=== PATIENT | male | born 1990 | race Caucasian/White ===

== ENCOUNTER 2024-04-08 11:51 | Inpatient (IN) | payer MEDICAID, SELFPAY ==
[~2024-04-08] VITALS: Ht 162.6 cm; Wt 98.1 kg
[2024-04-08 12:41] LABS: AMPHETAMINES LEVEL URINE NEGATIVE (NEGATIVE); BARBITURATES URINE NEGATIVE (NEGATIVE); BENZODIAZEPINES URINE NEGATIVE (NEGATIVE); CANNABINOIDS URINE NEGATIVE (NEGATIVE); COCAINE METABOLITE URINE NEGATIVE (NEGATIVE); METHADONE URINE NEGATIVE (NEGATIVE); OPIATES URINE NEGATIVE (NEGATIVE); PHENCYCLIDINE URINE NEGATIVE (NEGATIVE)
[2024-04-08 12:44] LABS: HEMATOCRIT 49.5 % (42.0-52.0); HEMOGLOBIN 17.3 g/dl (13.5-17.5); MEAN CORPUSCULAR HEMOGLOBIN 30.7 pg (27.0-33.0); MEAN CORPUSCULAR HGB CONC 34.9 g/dl (32.0-36.5); MEAN CORPUSCULAR VOLUME 87.9 fl (80.0-96.0); PLATELET COUNT, AUTOMATED 271 10^3/uL (150-450); RED BLOOD COUNT 5.63 10^6/uL (4.30-6.10)
[2024-04-08 13:11] LABS: ALBUMIN 4.4 G/DL (3.2-5.2); ALKALINE PHOSPHATASE 148 U/L (46-116); ALT/SGPT 43 U/L (7.0-40); AST/SGOT 23 U/L (<34); BILIRUBIN,DIRECT 0.3 MG/DL (<0.4); BILIRUBIN,TOTAL 1.1 MG/DL (0.3-1.2); BLOOD UREA NITROGEN 17 MG/DL (9-23); CALCIUM LEVEL 10.4 MG/DL (8.5-10.1); CARBON DIOXIDE LEVEL 27 MMOL/L (20-31); CHLORIDE LEVEL 104 MMOL/L (98-107); CREATININE FOR GFR 0.96 MG/DL (0.70-1.30); GLOMERULAR FILTRATION RATE > 60.0 (>60); GLUCOSE, FASTING 99 MG/DL (60-100); POTASSIUM SERUM 3.9 MMOL/L (3.5-5.1); SALICYLATE LEVEL < 3.0 MG/DL (<30); SODIUM LEVEL 137 MMOL/L (136-145)
[2024-04-08 13:12] LABS: ETHYL ALCOHOL (ETHANOL) < 0.003 % (0.000-0.010)
[2024-04-08 13:13] LABS: THYROID STIMULATING HORMONE 1.848 uIU/ML (0.55-4.78)
[2024-04-08] MEDS ORDERED: IBUPROFEN 400MG TAB PO PRN (14:30)
[2024-04-08] MEDS ORDERED: traZODone 50 MG TAB PO PRN (14:30)
[2024-04-08] MEDS ORDERED: diphenhydrAMINE 25MG CAP PO PRN (14:30)
[2024-04-08] MEDS ORDERED: MAALOX 30 ML SUSP *UDC PO PRN (14:30)
[2024-04-08] MEDS ORDERED: MOM 30ML SUSPENSION UDC PO PRN (14:30)
[2024-04-08] MEDS ORDERED: ACETAMINOPHEN TAB 650MG DOSE (2X325MG) PO PRN (14:30)
[2024-04-08 20:11] VITALS: BP 154/89; TEMP 97.5; O2SAT 99
[2024-04-09 06:07] VITALS: BP 146/85; TEMP 97.8; O2SAT 97
[2024-04-09] MEDS ORDERED: HOME MED LIST COMPLETE! XX SCH (11:40)
[2024-04-09] MEDS: OLANZapine ORAL DISINTEGRATING TAB 5MG PO SCH (14:01)
[2024-04-09 15:17] VITALS: BP 142/77; TEMP 98; O2SAT 99
[2024-04-10 06:38] VITALS: BP 111/56; TEMP 97.2; O2SAT 100
[2024-04-10 16:12] VITALS: BP 140/88; TEMP 97.4; O2SAT 100
[2024-04-11 06:27] VITALS: BP 141/65; TEMP 97; O2SAT 98
[2024-04-11 15:34] VITALS: BP 127/78; TEMP 97.6; O2SAT 99
[2024-04-11] MEDS: OLANZapine ORAL DISINTEGRATING TAB 5MG PO SCH (20:09)
[2024-04-12 06:27] VITALS: BP 144/71; TEMP 97; O2SAT 96
[2024-04-12 14:48] VITALS: BP 147/93; TEMP 97.2; O2SAT 95
[2024-04-13 06:56] VITALS: BP 121/70; TEMP 97.4; O2SAT 98
[2024-04-13] MEDS ORDERED: OLAN5ZYD PO (11:25)
== END 2024-04-13 13:06 | disposition home or self-care (01) | DRG 751 ==
LOC: M ED 11:51 → M ED INP 14:29 → M PSY 19:56
PROVIDERS: ADMIT Psychiatry & Neurology Psychiatry; ATTEND Psychiatry & Neurology Psychiatry
DX: F29 Unspecified psychosis not due to a substance or known physiological condition (principal); R45.851 Suicidal ideations; F17.200 Nicotine dependence, unspecified, uncomplicated; Z59.00 Homelessness unspecified; Z56.0 Unemployment, unspecified

== ENCOUNTER 2024-10-17 19:25 | Inpatient (IN) | payer MEDICAID, OTHER ==
[~2024-10-17] VITALS: Ht 162.6 cm; Wt 87.5 kg
[~2024-10-17 19:25] MED LIST: OLAN5ZYD PO
[2024-10-17 20:18] LABS: HEMATOCRIT 44.1 % (42.0-52.0); HEMOGLOBIN 15.1 g/dl (13.5-17.5); MEAN CORPUSCULAR HEMOGLOBIN 30.3 pg (27.0-33.0); MEAN CORPUSCULAR HGB CONC 34.2 g/dl (32.0-36.5); MEAN CORPUSCULAR VOLUME 88.6 fl (80.0-96.0); PLATELET COUNT, AUTOMATED 255 10^3/uL (150-450); RED BLOOD COUNT 4.98 10^6/uL (4.30-6.10); WHITE BLOOD COUNT 10.1 10^3/uL (4.0-10.0)
[2024-10-17 20:36] LABS: BARBITURATES URINE NEGATIVE (NEGATIVE); BENZODIAZEPINES URINE NEGATIVE (NEGATIVE); CANNABINOIDS URINE NEGATIVE (NEGATIVE); COCAINE METABOLITE URINE NEGATIVE (NEGATIVE); METHADONE URINE NEGATIVE (NEGATIVE); OPIATES URINE NEGATIVE (NEGATIVE); PHENCYCLIDINE URINE NEGATIVE (NEGATIVE)
[2024-10-17 20:38] LABS: ETHYL ALCOHOL (ETHANOL) 0.006 % (0.000-0.010)
[2024-10-17 20:39] LABS: AMPHETAMINES LEVEL URINE POSITIVE (NEGATIVE); SALICYLATE LEVEL < 3.0 MG/DL (<30)
[2024-10-17 20:40] LABS: ALBUMIN 3.8 G/DL (3.2-5.2); ALKALINE PHOSPHATASE 88 U/L (40-129); ALT/SGPT 19 U/L (7.0-40); AST/SGOT 15 U/L (<34); BILIRUBIN,DIRECT 0.1 MG/DL (<0.4); BILIRUBIN,TOTAL 0.4 MG/DL (0.3-1.2); BLOOD UREA NITROGEN 13 MG/DL (9-23); CALCIUM LEVEL 8.9 MG/DL (8.5-10.1); CARBON DIOXIDE LEVEL 27 MMOL/L (20-31); CHLORIDE LEVEL 106 MMOL/L (98-107); CREATININE FOR GFR 0.81 MG/DL (0.70-1.30); GLOMERULAR FILTRATION RATE > 90.0 (>60); GLUCOSE, FASTING 86 MG/DL (60-100); POTASSIUM SERUM 3.9 MMOL/L (3.5-5.1); SODIUM LEVEL 143 MMOL/L (136-145); TOTAL PROTEIN 6.8 G/DL (5.7-8.2)
[2024-10-17 20:42] LABS: THYROID STIMULATING HORMONE 2.822 uIU/ML (0.55-4.78)
[2024-10-18] MEDS ORDERED: MAALOX 30 ML SUSP *UDC PO PRN (00:10)
[2024-10-18] MEDS ORDERED: ACETAMINOPHEN 325 MG TAB PO PRN (00:10)
[2024-10-18] MEDS ORDERED: MOM 30ML SUSPENSION UDC PO PRN (00:10)
[2024-10-18] MEDS ORDERED: HOME MED LIST COMPLETE! XX SCH (00:25)
[2024-10-18 02:45] VITALS: BP 124/70; TEMP 97.2; O2SAT 100
[2024-10-18] MEDS: ESCITALOPRAM OXALATE 5MG TABLET (LEXAPRO) PO SCH (14:58)
[2024-10-18 17:02] VITALS: BP 134/89; TEMP 96.9; O2SAT 98
[2024-10-18] MEDS: OLANZapine 5 MG TAB PO SCH (20:26)
[2024-10-19 06:35] VITALS: BP 136/73; TEMP 97.4; O2SAT 100
[2024-10-19 15:10] VITALS: BP 146/76; TEMP 97.6; O2SAT 100
[2024-10-20 06:48] VITALS: BP 149/87; TEMP 97.7; O2SAT 97
[2024-10-20] MEDS: ESCITALOPRAM OXALATE 10 MG TAB (LEXAPRO) PO SCH (08:16)
[2024-10-20 15:48] VITALS: BP 140/89; TEMP 97.9; O2SAT 98
[2024-10-21 06:51] VITALS: BP 139/79; TEMP 97; O2SAT 97
[2024-10-21 16:13] VITALS: BP 145/80; TEMP 98.2; O2SAT 98
[2024-10-22 06:00] VITALS: BP 140/77; TEMP 97.5; O2SAT 96
[2024-10-22] MEDS ORDERED: TRAZ-252 PO (12:19)
[2024-10-22] MEDS ORDERED: LEXA1TAB PO (12:19)
[2024-10-22] MEDS ORDERED: ABIL1TAB11 PO (12:19)
[2024-10-22] MEDS ORDERED: OLAN1TAB16 PO (12:19)
[2024-10-22] MEDS ORDERED: DIPH-435 PO (12:19)
[2024-10-22] MEDS ORDERED: HYDR-4570 PO (12:19)
[2024-10-22 15:03] VITALS: BP 126/66; TEMP 97.6; O2SAT 97
[2024-10-23 06:59] VITALS: BP 144/79; TEMP 97.2; O2SAT 96
[2024-10-23] MEDS: ESCITALOPRAM OXALATE 10 MG TAB (LEXAPRO) PO SCH (08:51)
[2024-10-23 15:13] VITALS: BP 144/96; TEMP 97.3; O2SAT 96
[2024-10-23] MEDS: traZODone 50 MG TAB PO PRN (20:08)
[2024-10-23] MEDS: IBUPROFEN 400MG TAB PO PRN (21:03)
[2024-10-24 06:48] VITALS: BP 118/66; TEMP 97; O2SAT 96
[2024-10-24] MEDS ORDERED: OLANZapine ORAL DISINTEGRATING TAB 5MG PO PRN (10:50)
[2024-10-24 15:59] VITALS: BP 148/108; TEMP 97.5; O2SAT 98
[2024-10-24] MEDS: OLANZapine 10 MG TAB PO SCH (20:26)
[2024-10-24] MEDS: diphenhydrAMINE 25MG CAP PO PRN (20:26)
[2024-10-25 06:48] VITALS: BP 156/93; TEMP 97.7; O2SAT 96
[2024-10-25 16:15] VITALS: BP 137/87; TEMP 97.8; O2SAT 97
[2024-10-26 06:44] VITALS: BP 150/84; TEMP 98; O2SAT 96
[2024-10-26 17:28] VITALS: BP 153/84; TEMP 97; O2SAT 95
[2024-10-27 07:00] VITALS: BP 147/95; TEMP 97.9; O2SAT 98
[2024-10-27 16:00] VITALS: BP 140/76; TEMP 98.1; O2SAT 95
[2024-10-28 06:33] VITALS: BP 147/97; TEMP 97.7; O2SAT 99
[2024-10-28 14:34] VITALS: BP 138/72; TEMP 97.8; O2SAT 96
[2024-10-29 06:30] VITALS: BP 152/84; TEMP 97.1; O2SAT 96
[2024-10-29 17:23] VITALS: BP 110/80; TEMP 97.8; O2SAT 94
[2024-10-30 06:36] VITALS: BP 132/76; TEMP 97.9; O2SAT 96
== END 2024-10-30 12:33 | disposition home or self-care (01) | DRG 751 ==
LOC: M ED 19:25 → M ED INP 10-18 00:10 → M PSY 10-18 01:55
PROVIDERS: ADMIT Psychiatry & Neurology Neurology; ATTEND Psychiatry & Neurology Neurology
DX: F33.1 Major depressive disorder, recurrent, moderate (principal); F41.9 Anxiety disorder, unspecified; F15.20 Other stimulant dependence, uncomplicated; R45.851 Suicidal ideations; F17.200 Nicotine dependence, unspecified, uncomplicated; Z56.0 Unemployment, unspecified; Z59.00 Homelessness unspecified

== ENCOUNTER 2024-10-31 08:32 | Emergency (ER) | payer OTHER ==
[~2024-10-31] VITALS: Ht 162.6 cm; Wt 88.6 kg
[~2024-10-31 08:32] MED LIST changes: +ABIL1TAB11 PO; +DIPH-435 PO; +HYDR-4570 PO; +LEXA1TAB PO; +OLAN1TAB16 PO; +TRAZ-252 PO
[2024-10-31 09:14] LABS: HEMATOCRIT 49.6 % (42.0-52.0); HEMOGLOBIN 16.5 g/dl (13.5-17.5); MEAN CORPUSCULAR HEMOGLOBIN 30.1 pg (27.0-33.0); MEAN CORPUSCULAR HGB CONC 33.3 g/dl (32.0-36.5); MEAN CORPUSCULAR VOLUME 90.5 fl (80.0-96.0); PLATELET COUNT, AUTOMATED 282 10^3/uL (150-450); RED BLOOD COUNT 5.48 10^6/uL (4.30-6.10); WHITE BLOOD COUNT 10.2 10^3/uL (4.0-10.0)
[2024-10-31 09:33] LABS: AMPHETAMINES LEVEL URINE NEGATIVE (NEGATIVE); BARBITURATES URINE NEGATIVE (NEGATIVE); BENZODIAZEPINES URINE NEGATIVE (NEGATIVE); CANNABINOIDS URINE NEGATIVE (NEGATIVE); COCAINE METABOLITE URINE NEGATIVE (NEGATIVE); METHADONE URINE NEGATIVE (NEGATIVE); OPIATES URINE NEGATIVE (NEGATIVE); PHENCYCLIDINE URINE NEGATIVE (NEGATIVE)
[2024-10-31 09:36] LABS: ETHYL ALCOHOL (ETHANOL) < 0.003 % (0.000-0.010)
[2024-10-31 09:38] LABS: ALBUMIN 4.1 G/DL (3.2-5.2); ALKALINE PHOSPHATASE 116 U/L (40-129); ALT/SGPT 84 U/L (7.0-40); AST/SGOT 38 U/L (<34); BILIRUBIN,DIRECT < 0.1 MG/DL (<0.4); BILIRUBIN,TOTAL 0.2 MG/DL (0.3-1.2); BLOOD UREA NITROGEN 16 MG/DL (9-23); CALCIUM LEVEL 9.4 MG/DL (8.5-10.1); CARBON DIOXIDE LEVEL 26 MMOL/L (20-31); CHLORIDE LEVEL 106 MMOL/L (98-107); GLOMERULAR FILTRATION RATE > 90.0 (>60); GLUCOSE, FASTING 88 MG/DL (60-100); POTASSIUM SERUM 4.4 MMOL/L (3.5-5.1); SALICYLATE LEVEL < 3.0 MG/DL (<30); SODIUM LEVEL 142 MMOL/L (136-145); TOTAL PROTEIN 7.4 G/DL (5.7-8.2)
[2024-10-31 09:39] LABS: THYROID STIMULATING HORMONE 2.696 uIU/ML (0.55-4.78)
[2024-10-31 13:00] VITALS: BP 139/100; TEMP 97.8; O2SAT 98
== END 2024-10-31 13:02 | disposition home or self-care (01) ==
LOC: M ED 08:32
DX: F32.A Depression, unspecified (principal); F19.10 Other psychoactive substance abuse, uncomplicated; Z59.00 Homelessness unspecified; F17.200 Nicotine dependence, unspecified, uncomplicated; Z79.899 Other long term (current) drug therapy